=== PATIENT | male | born 2000 | race Caucasian/White ===

== ENCOUNTER 2020-05-31 10:25 | Emergency (ER) | payer OTHER ==
[2020-05-31] MEDS ORDERED: Promethazine 25 MG/ML SDV IM ONE (10:36)
[2020-05-31] MEDS ORDERED: HYDROmorphone 1 MG/ML Syringe IM ONE (10:36)
[2020-05-31] MEDS ORDERED: Sodium Chloride 0.9% 10 ML Syringe FLUSH PRN (11:06)
[2020-05-31] MEDS ORDERED: Midazolam 1 MG/ML 2 ML SDV IVPUSH ONE (11:07)
--- NOTE | 2020-05-31 11:10 | CR ---
PROCEDURE INFORMATION: Exam: XR Left Shoulder Exam date and time: 05/31/2020 10:47 AM Age: 19 years old Clinical indication: Other: Left shoulder injury TECHNIQUE: Imaging protocol: XR Left shoulder. Views: 2 or more views. COMPARISON: No relevant prior studies available. FINDINGS: Bones/joints: Anterior subcoracoid dislocation. No displaced fracture appreciated Soft tissues: There is soft tissue swelling appreciated. IMPRESSION: Anterior subcoracoid dislocation.
--- NOTE | 2020-05-31 11:33 | CR ---
PROCEDURE INFORMATION: Exam: XR Left Shoulder Exam date and time: 05/31/2020 11:23 AM Age: 19 years old Clinical indication: Other: Post reduction TECHNIQUE: Imaging protocol: XR Left shoulder. Views: 2 or more views. COMPARISON: CR Shoulder Comp Lt 05/31/2020 10:47 AM FINDINGS: Bones/joints: Anatomic alignment on the post reduction exam. No displaced fracture Soft tissues: Normal. IMPRESSION: Anatomic alignment on the post reduction exam.
--- NOTE | 2020-05-31 11:45 | EDM.PDOC ---
Scribed by Kym Jackson 05/31/20 1143 for Sarah Chandra MD ED HPI GENERAL MEDICAL PROBLEM - General Chief Complaint: Upper Extremity Injury/Pain Stated Complaint: SHOULDER INJURY Time Seen by Provider: 05/31/20 10:35 Source of Information: Reports: Patient, RN, RN Notes Reviewed History Limitations: Reports: No Limitations - History of Present Illness INITIAL COMMENTS - FREE TEXT/NARRATIVE: Patient presents to ED by POV. He was doing low crawl this morning and his left shoulder popped. He thinks he dislocated. Patient is with the [employer]. Onset: Today Duration: Constant Location: Reports: Upper Extremity, Left Quality: Reports: Ache Severity: Severe Improves with: Reports: None Worsens with: Reports: None Associated Symptoms: Reports: No Other Symptoms Left Shoulder Pain Score (Numeric/FACES): 10 - Related Data Allergies Allergy/AdvReac Type Severity Reaction Status Date / Time No Known Allergies Allergy Verified 05/31/20 10:37 Home Meds: Home Meds . [No Known Home Meds] 05/31/20 [History] Review of Systems - Review of Systems Review Of Systems: Comprehensive ROS is negative, except as noted in HPI. ED EXAM, GENERAL - Physical Exam Exam: See Below General Appearance: Alert, WD/WN, No Apparent Distress Nose: Normal Inspection, Normal Mucosa, No Blood Throat/Mouth: Normal Voice, No Airway Compromise Head: Atraumatic, Normocephalic Neck: Normal Inspection, Supple, Non-Tender, Full Range of Motion Respiratory/Chest: No Respiratory Distress, Lungs Clear, Normal Breath Sounds, No Accessory Muscle Use Cardiovascular: Normal Peripheral Pulses, Regular Rate, Rhythm Back Exam: Normal Inspection, Full Range of Motion, NT Extremities: Limited Range of Motion (left shoulder with obvious deformity consistent with dislocation, no visible bruising or swelling) Neurological: Alert, Oriented, Normal Cognition, No Motor/Sensory Deficits Psychiatric: Normal Affect, Normal Mood Skin Exam: Warm, Dry, Intact, Normal Color, No Rash ED TRAUMA EXTREMITY PROCEDURES - Joint Reduction Left Shoulder Sedation: Other (Versed for relaxation) Pre-Procedure NV Status: Normal Post-Procedure NV Status: Normal Technique: Other (closed reduction with manual lmanipulation) Number of Attempts: 1 Post-Reduction Imaging: Completely Reduced, No Fracture Seen Joint Reduction Complications: No - Splinting Left Upper Extremity Splint Site: left shoulder Pre-Procedure NV Status: Normal Post-Procedure NV Status: Normal Splint Material: Velcro Splint Design: Other (shoulder immobilizer) Applied & Form Fitted By: Nurse Provider Post-Splint Application NV Check: NV Status Normal, Good Position Complications: No Course - Vital Signs Last Recorded V/S: Last Vital Signs Temp 96.3 F L 05/31/20 10:43 Pulse 74 05/31/20 10:43 Resp 18 05/31/20 10:43 BP 147/77 H 05/31/20 10:43 Pulse Ox 100 05/31/20 10:43 - Orders/Labs/Meds Orders: Active Orders 24 hr Category Date Time Status Immobilizer [RC] ASDIRECTED Care 05/31/20 11:07 Active Peripheral IV Care [RC] . DIRECTED Care 05/31/20 11:07 Active Sodium Chloride 0.9% [Saline Flush] Med 05/31/20 11:06 Active 10 ml FLUSH ASDIRECTED PRN Peripheral IV Insertion Adult [OM.PC] Routine Oth 05/31/20 11:06 Ordered Medication Orders Sodium Chloride (Saline Flush) 10 ml FLUSH ASDIRECTED PRN PRN Reason: Keep Vein Open Last Admin: 05/31/20 11:15 Dose: 10 ml Documented by: TAISHA Prasad: Medications Generic Name Dose Route Start Last Admin Trade Name Freq PRN Reason Stop Dose Admin Sodium Chloride 10 ml 05/31/20 11:06 05/31/20 11:15 Saline Flush FLUSH 10 ml ASDIRECTED PRN Administration Keep Vein Open Discontinued Medications Generic Name Dose Route Start Last Admin Trade Name Freq PRN Reason Stop Dose Admin Hydromorphone HCl 2 mg 05/31/20 10:36 05/31/20 10:40 Dilaudid IM 05/31/20 10:37 2 mg ONETIME ONE Administration Midazolam HCl 4 mg 05/31/20 11:07 05/31/20 11:15 Versed 1 Mg/Ml IVPUSH 05/31/20 11:08 4 mg ONETIME ONE Administration Promethazine HCl 25 mg 05/31/20 10:36 05/31/20 10:40 Phenergan IM 05/31/20 10:37 25 mg ONETIME ONE Administration - Radiology Interpretation Free Text/Narrative:: Left shoulder x-ray: Anterior subcoracoid dislocation. See rad report. Post-reduction left shoulder: Anatomic alignment on the post reduction exam. See rad report. Departure - Departure Time of Disposition: 11:40 Disposition: Home, Self-Care 01 Condition: Good Clinical Impression: Dislocation of shoulder, anterior, left, closed Qualifiers: Encounter type: initial encounter Qualified Code(s): S43.015A - Anterior dislocation of left humerus, initial encounter - Discharge Information *PRESCRIPTION DRUG MONITORING PROGRAM REVIEWED*: Not Applicable *COPY OF PRESCRIPTION DRUG MONITORING REPORT IN PATIENT RODNEY: Not Applicable Instructions: Shoulder Dislocation Forms: ED Department Discharge Additional Instructions: Over the counter Tylenol and/or Ibuprofen for pain control, follow directions on package for dosing and precautions. Do not remove the shoulder immobilizer until seen by orthopedic surgeon. Call Tuesday to schedule orthopedic appointment in [place]. Return to ER if any problems or concerns. Sepsis Event Note (ED) - Focused Exam Vital Signs: Vital Signs Temp Pulse Resp BP Pulse Ox 05/31/20 10:43 96.3 F L 74 18 147/77 H 100 - My Orders Last 24 Hours: My Active Orders 05/31/20 11:06 Sodium Chloride 0.9% [Saline Flush] 10 ml FLUSH ASDIRECTED PRN Peripheral IV Insertion Adult [OM.PC] Routine 05/31/20 11:07 Immobilizer [RC] ASDIRECTED Peripheral IV Care [RC] . DIRECTED - Assessment/Plan Last 24 Hours: My Active Orders 05/31/20 11:06 Sodium Chloride 0.9% [Saline Flush] 10 ml FLUSH ASDIRECTED PRN Peripheral IV Insertion Adult [OM.PC] Routine 05/31/20 11:07 Immobilizer [RC] ASDIRECTED Peripheral IV Care [RC] . DIRECTED I have read and agree with the documentation that has been completed regarding this visit. By signing this record, I attest that the documentation was completed in my physical presence and is an accurate record of the encounter.
== END 2020-05-31 12:00 | disposition home or self-care (01) ==
LOC: DL.ED 10:25
DX: S43.015A Anterior dislocation of left humerus, initial encounter (principal); X50.9XXA Other and unspecified overexertion or strenuous movements or postures, initial encounter
CPT/HCPCS: 23650; 73030; 96372; 96374; 99283; J1170; J2250; J2550